=== PATIENT | male | born 1985 | race Caucasian/White ===

== ENCOUNTER 2024-06-27 17:17 | Emergency (ER) | payer OTHER, SELFPAY ==
--- NOTE | ~2024-06-27 | XR_ITS ---
XR hand LT min 3V Ordering provider: John Rendon APRN History: . dog bite/crush . Comparison: None. FINDINGS: BONES: No acute fractures seen. JOINT SPACES: Well maintained. SOFT TISSUES: Air is seen in the area of the thenar eminence. IMPRESSION: No acute osseous abnormality left hand. Air in the soft tissues of the thenar eminence. Reviewed, dictated and finalized at location A.
--- NOTE | ~2024-06-27 | XR_ITS ---
XR hand RT min 3V Ordering provider: John Rendon APRN History: . dog bite/crush . Comparison: None. FINDINGS: BONES: No acute fracture or dislocation. JOINT SPACES: Normal. SOFT TISSUES: Normal. IMPRESSION: No acute osseous abnormality right hand. Reviewed, dictated and finalized at location A.
--- OUTSIDE RECORDS SUMMARY | 2024-06-27 17:20 | XMS_ITS | Encounter Summary ---
Author Organization [facility] Address [address] [place] [address] Care Team Providers Care Credit And Collections Representative Name Role Phone Gema Daley NP Primary Care Provider Otto Bonner MD Primary Care Provider U Emily Alvarez APRN Primary Care Provider +1- [phone] Otto Britt MD Primary Care Provider U lakeishaailrosemary Encounter Details Date Type Department Care Team (Late st Contact Info) Description 06/28/2013 Abstract [facility] Conversion , Generic Conversion, Social History Tobacco Use Types Packs/Day Years Used Date Smoking Tobacco: Never Assessed Sex and Gender Information Value Date Recorded Sex Assigned at Not on file Legal Sex Male 11:12 PM CDT Gender Identity Not on file Sexual Orientation Not on file documented as of this encounter Plan of Treatment Not on file documented as of this encounter Visit Diagnoses Not on filedocumented in this encounter Additional Health Concerns Infection Onset Date Last Indicated Resolved Time COVID-19 Rule Out 07/15/2022 07/15/2022 07/15/2022 2:03 PM CDT documented as of this encounter Care Teams Credit And Collections Representative Relationship Specialty Start Date End Date Gema Daley NP PCP - General NURSE PRACTITIONER 04/06/18 04/22/20 Otto Britt MD PCP - General INTERNAL MEDICINE 04/23/20 04/26/22 Emily Carey APRN [id number] [facility] [address] [place] [address] PCP - General NURSE PRACTITIONER 06/03/22 Otto Britt MD PCP - General INTERNAL MEDICINE 04/27/22 06/02/22 documented as of this encounter
--- OUTSIDE RECORDS SUMMARY | 2024-06-27 17:20 | XMS_ITS | Clinical Summary ---
Author Organization [facility] Address [address] [place] [address] Care Team Providers Care Editor School Photograph Name Role Phone Emily Carey APRN Primary Care Provider [phone]- [phone] Allergies Active Allergy Reactions Criticality Noted Date Comments Amoxicillin-Pot Clavulanate Diarrhea,Nausea and Vomiting,Unknown 06/21/2013 Pt states he has not had vomiting with this medication Medications multi vitamin/minerals (THERA-M ENHANCED) tablet Take 1 tablet by mouth daily. 04/13/2016 Active fish oil 1000 MG Cap capsule Take 1 capsule (1,000 mg total) by mouth 2 (two) times daily. Active SUMAtriptan 100 MG tabletIndication s:Chronic migraine without aura without status migrainosus, not intractable Take 1 tablet at onset of symptoms, may take 1 tablet 2 hours later. Max of 2 tablets in 24-hour period. 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 Plantar wart of right foot 04/07/2018 Gastroesophageal reflux dise ase, esophagitis presence not specified 04/06/2018 Atypical chest pain 04/06/2018 Breast lump 03/01/2017 Muscle spasm 09/18/2016 Body aches 05/03/2016 Piriformis syndrome 04/13/2016 Sacral pain 04/13/2016 Lumbar pain 04/13/2016 Nonspecific abnormal finding in stool contents 0 03/25/2016 Bloating 01/07/2016 Belching 01/07/2016 Anxiety 01/07/2016 Pain in joint 03/26/2015 Immunizations Immunization Administration Dates Next Due Dtap (Generic) 07/30/1991, 8,02/17/1987,1986,1986 Fluzone 6 Months+ Quad (0.5 mL Prefilled Syringe) 12/20/2018 HPV GARDASIL 9-VALENT 07/19/2021,03/21/2021,11/0 09/2020 Hepatitis B 07/02/1996,01/30/1996,12/29/1995 Influenza (Generic) 12/08/2015,12/02/2014 Influenza Adult (Generic) 12/19/2022,08/2021,01/04/2021,2019,12/08/2017,12/05/2016,12/08/2015,1 ,12/03/2013 MMR (Generic) 07/30/1991,10/27/1987 Opv 07/30/1991, 8,02/17/1987,1986,1986 PFIZER COVID-19 (ORIGINAL FORMULATION, PURPLE CAP) mRNA, LNP-S, PF, 30 MCG/0.3 ML DOSE 06/11/2020,05/20/2020 Td 08/08/2001 Tdap (Generic) 03/23/2011 Social History Tobacco Use Types Packs/Day Years Used Date Smoking Tobacco: Never Smokeless Tobacco: Never Tobacco Cessation:Counseling Given: No Alcohol Use Standard Drinks/Week Comments Yes 0 (1 standard drink = 0.6 oz pur e alcohol) AUDIT-C Answer Date Recorded Frequency of Alcohol Consumption 2-3 times a wee k 04/06/2018 Average Number of Drinks 3 or 4 019 Frequency of Binge Drinking Less than monthly PHQ-2 Answer Date Recorded Patient Health Questionnaire-2 Score 0 05/10/2022 Education Answer Date Recorded What is the highest level of school you have completed or the highest degree you have received? High school graduate 04/06/2018 Sex and Gender Information Value Date Recorded Sex Assigned at Not on file Legal Sex Male 11:12 PM CDT Gender Identity Not on file Sexual Orientation Not on file Last Filed Vital Signs Vital Sign Reading Time Taken Comments Blood Pressure 144/91 07/15/2022 1:26 PM CDT Pulse 86 07/15/2022 1:26 PM CDT Temperature 37.2 C (99 F) 07/15/2022 1:26 PM CDT Respiratory Rate 20 07/15/2022 1:26 PM CDT Oxygen Saturation 98% 07/15/2022 1:26 PM CDT Inhaled Oxygen Concentration - - Weight 81.3 kg (179 lb 3.2 oz) 07/15/2022 1:26 P M CDT Height 180.3 cm (5' 11 ) 07/15/2022 1:26 PM CDT Body Mass Index 24.99 07/15/2022 1:26 PM CDT Plan of Treatment Health Maintenance Due Date Last Done Comments Annual Physical 1989 Hepatitis C 2004 DTaP, Tdap and Td Vaccines (7 - Td or Tdap) 03/23/2021 03/23/2011, 08/08/2001, 07/30/1991, Additional history exists COVID-19 Vaccine ( season) 2023 06/11/2020, 05/20/2020 PHQ-2 (Physician [place]) 02/28/2024 Hepatitis B Vaccines Completed 07/02/1996, 01/30/1996, 12/29/1995 HPV Vaccines Completed 07/19/2021, 02/28, 01/04/2021 Meningococcal B Vaccine Aged Out No l onger eligible based on patient's age to complete this topic Meningococcal Vaccine Aged Out No pat tez eligible based on patient's age to complete this topic Pneumococcal Vaccine: Pediatrics (0 to 5 Years) and At-Risk Patients (6 to 49 Years) Aged Out No longer eligible based on patient's age to complete this topic RSV Immunizations Under 20 Months Aged Out No longer eligible based on patient's age to complete this topic Insurance [facility] Care Teams Editor School Photograph Relationship Specialty Start Date End Date Emily Carey APRN [id number] [address] PCP - General NURSE PRACTITIONER 06/03/22
--- OUTSIDE RECORDS SUMMARY | 2024-06-27 17:20 | XMS_ITS | Encounter Summary ---
Author Organization [facility] Address [address] [place] [address] Care Team Providers Care Display Artist Name Role Phone Gema Daley NP Primary Care Provider Otto Bonner MD Primary Care Provider U Emily Alvarez APRN Primary Care Provider [phone]- [phone] Otto Britt MD Primary Care Provider U lakeishaailrosemary Encounter Details Date Type Department Care Team (Late st Contact Info) Description 04/29/2002 Abstract [facility] Conversion , Generic Conversion, Social History [...] documented as of this encounter Care Teams Display Artist Relationship Specialty Start Date End Date Gema Daley NP PCP - General NURSE PRACTITIONER 04/06/18 04/22/20 Otto Britt MD PCP - General INTERNAL MEDICINE 04/23/20 04/26/22 Emily Carey APRN [id number] [facility] [address] [place] [address] PCP - General NURSE PRACTITIONER 06/03/22 Otto Britt MD PCP - General INTERNAL MEDICINE 04/27/22 06/02/22 documented as of this encounter
--- OUTSIDE RECORDS SUMMARY | 2024-06-27 17:20 | XMS_ITS | Encounter Summary ---
Author Organization [facility] Address [facility] [place] [address] Care Team Providers Care Online Merchandiser Name Role Phone Gema Daley NP Primary Care Provider Otto Bonner MD Primary Care Provider U Emily Alvarez APRN Primary Care Provider +1- [phone] Otto Britt MD Primary Care Provider U stephanie Encounter Details Date Type Department Care Team (Late st Contact Info) Description 07/16/2013 Abstract [facility] Conversion , Generic Conversion, Social History Tobacco Use Types Packs/Day Years Used Date Smoking Tobacco: Never Sex and Gender Information Value Date Recorded [...] documented as of this encounter Care Teams Online Merchandiser Relationship Specialty Start Date End Date Gema Daley NP PCP - General NURSE PRACTITIONER 04/06/18 04/22/20 Otto Britt MD PCP - General INTERNAL MEDICINE 04/23/20 04/26/22 Emily Carey APRN [id number] [address] PCP - General NURSE PRACTITIONER 06/03/22 Otto Britt MD PCP - General INTERNAL MEDICINE 04/27/22 06/02/22 documented as of this encounter
--- NOTE | 2024-06-27 17:30 | ED.WOUNDLAC ---
HPI - Wound/Laceration General Chief Complaint: Wound/Laceration Stated Complaint: Bilateral Hand Pain Dog Bite Time Seen by Provider: 06/27/24 17:35 Source: patient Mode of arrival: ambulatory Limitations: no limitations History of Present Illness HPI narrative: This is a 38-year-old male patient who presents to the emergency department complaining of dog bite to bilateral hands. He was at work and his boss is dog was trapped in a fence when he reached down to try to free the dogs foot the dog snapped and bit patient's hands crushing down on the left hand. He used his right hand to try to free has left hand causing a scratch across the right 5th digit. He states that he has pain to his left hand with bruising and swelling already developing. He primarily had pain around the 3rd and 4th MCP joint along with numerous scratches and a couple small lacerations. This happened about an hour prior to arrival. Patient reports he washed hands completely including pulling apart the cuts and running water in them. He states tetanus was 13 years ago the best he can recall. Related Data Home Medications ?Medication ?Instructions ?Recorded ?Confirmed ?Last Taken ?Type sumatriptan succinate 50 mg tablet 50 mg PO ONCE 06/27/24 06/27/24 Unknown History (Imitrex) Allergies Allergy/AdvReac Type Severity Reaction Status Date / Time amoxicillin (From Augmentin) AdvReac Mild Nausea and Verified 06/27/24 17:56 Vomiting clavulanic acid (From AdvReac Mild Nausea and Verified 06/27/24 17:56 Augmentin) Vomiting Review of Systems Review of Systems: All systems reviewed & are unremarkable except as noted in HPI and below Exam Narrative: GENERAL: Well-appearing, well-nourished, and in no acute distress. HEAD: Normocephalic, atraumatic. ENT:? Mucous membranes moist. CHEST: Clear to auscultation.? No respiratory distress. HEART: Regular rate and rhythm. ? Normal peripheral pulses. ABDOMEN: Soft, nontender, nondistended. EXTREMITIES: Normal range of motion. cap refill present in all digits. Full range of motion in all digits. Abrasion to the right 5th digit along the PIP joint without wound edge separation amenable to repair. Left hand with bruising and swelling over the mid hand with a laceration between the thumb and the 2nd digit as well as a small the sleep laceration the dorsum of the hand overlying the 3rd metacarpal. Multiple other scattered abrasions noted across the hand including 1 on the palm. SKIN: Warm dry normal color NEURO: Alert and oriented x3. PSYCH: Normal mood and affect Course Course Level of Care: Express Care Visit Vital Signs Vital signs: Vital Signs Temperature 36.1 C L 06/27/24 17:32 Pulse Rate 84 06/27/24 17:32 Respiratory Rate 18 06/27/24 17:32 Blood Pressure 146/102 H 06/27/24 17:32 Pulse Oximetry 99 06/27/24 17:32 Oxygen Delivery Room Air 06/27/24 17:32 Temperature 36.1 C L 06/27/24 17:32 Pulse Rate 94 06/27/24 18:34 Respiratory Rate 18 06/27/24 17:32 Blood Pressure 153/82 H 06/27/24 18:34 Pulse Oximetry 99 06/27/24 17:32 Oxygen Delivery Room Air 06/27/24 17:32 Procedures Laceration Laceration 1: Date: 06/27/24 Time: 18:00 Site: hand ( Left hand between the thumb and index finger on the dorsum) Side (If applicable): left Size (cm): 1 Description: linear Depth: simple, single layer Local Anesthetic: lidocaine 1% and with epi Amount of anesthesia used (mL): 6 Pre-repair: wound explored, irrigated and irrigated extensively ====== Skin Level ====== Skin layer closed with: nylon Size (cm): 4-0 Number of sutures: 2 Technique: simple, interrupted ====== Subcutaneous Layer ====== ====== Muscle Layer ====== ====== Tendon Layer ====== Laceration 2: Date: 06/27/24 Time: 18:05 Site: hand ( dorsum overlying the 3rd metacarpal) Side (If applicable): left Size (cm): 1 ( v-shaped) Description: other (V shaped) Depth: simple, single layer Local Anesthetic: lidocaine 1% and with epi Amount of anesthesia used (mL): 4 Pre-repair: wound explored, irrigated and irrigated extensively ====== Skin Level ====== Skin layer closed with: nylon Size (cm): 4-0 Number of sutures: 1 Technique: simple, interrupted (One stitch to the V point which pulled both side wound edges together but left room to drain if needed) ====== Subcutaneous Layer ====== ====== Muscle Layer ====== ====== Tendon Layer ====== MDM - Wound/Laceration MDM Narrative Medical decision making narrative: Patient to the [facility] with dog bite. Bilateral hand x-rays ordered no acute fracture noted per my independent interpretation as well as radiology read. Patient does have old fracture to the distal phalanx of the left 3rd finger but no injury currently at that location. Tdap updated. Only 2 lacerations were large enough to need wound edges pull together. 1 cm laceration between the thumb and the forefinger on the dorsum of the left hand placed 2 sutures but still tried to leave room for drainage if necessary. V-shaped laceration totaling 1 cm on the dorsum of the left hand overlying the 3rd metacarpal lung 1 suture placed at the point of the which pulled both edges into alignment but left room for drainage. Wounds were all very Thoroughly cleansed and irrigated. No retained foreign bodies. Patient instructed on wound care as well as approximately 14 days for suture removal. Antibiotics started. Patient reports adverse reaction of nausea and vomiting GI upset to Augmentin however I discussed the options of using Augmentin verses Keflex and metronidazole and patient chose to try the Augmentin along within a probiotic over the counter and Zofran prescription. We gave an IM injection of ketorolac here and prescription written for Motrin as well as [place] for severe pain. Patient instructed to take the 1st dose of antibiotic Zofran and probiotic tonight. We may sure to send the prescription to a pharmacy that would still be open after discussion with patient and significant other. return precautions discussed. Discharge Plan Discharge Clinical Impression: Dog bite of dorsum of hand Patient Disposition: Home Condition: Stable Instructions: Antibiotic Form, Animal Bite (ED) Additional Instructions: Have sutures removed in 10-14 days. Take antibiotic as prescribed to prevent infection. Take a probiotic and ondansetron at same time as antibiotic to decrease upset stomach symptoms. If you develop pus draining or signs of spreading infection then please be seen again. Do not soak hand in standing water or natural bodies of water including streams, ponds, lakes, ocean until wounds are closed, healed and sutures are out. Hand wounds are particularly susceptible to infections and if left untreated can cause major problems. If you are unable to bend or straighten fingers or they swell like a sausage you need to go to ER. Patient Language: Iranian Prescriptions: New ondansetron 4 mg tablet,disintegrating 4 mg PO Q6H PRN (Reason: nausea and vomiting) Qty: 20 0RF amoxicillin-pot clavulanate 875-125 mg tablet 1 tablet PO Q12H Qty: 14 0RF ibuprofen 600 mg tablet 600 mg PO Q6H Qty: 30 0RF hydrocodone-acetaminophen 5-325 mg tablet 1 tablet PO Q4H PRN (Reason: pain, severe) Qty: 17 0RF No Action sumatriptan succinate [Imitrex] 50 mg tablet 50 mg PO ONCE Follow-up/Referrals: PHYSICIAN,DIVIDING MACHINE OPERATOR [Primary Care Provider] - Stand Alone Forms: Work/School Release IP Time of Disposition: 18:27
[2024-06-27 17:32] VITALS: BP 146/102; PULSE 84; RESP 18; TEMP 36.1; O2SAT 99
[2024-06-27] MEDS: LIDO 1%/EPINEPHRINE 1:100,000 20 ML VIAL 10 ML INFILTRATE (17:50)
[2024-06-27] MEDS: KETOROLAC (*BKC) 60 MG/2 ML VIAL IM (17:51)
[2024-06-27] MEDS: TETANUS,DIPHTHERIA,AC PERTUSSIS ADULT (0.5 ML) BOOSTRIX IM (17:55)
[2024-06-27 18:34] VITALS: BP 153/82; PULSE 94
== END 2024-06-27 18:34 | disposition home or self-care (01) ==
PROVIDERS: Emergency Provider Nurse Practitioner
DX: S61.412A Laceration without foreign body of left hand, initial encounter (principal); S60.416A Abrasion of right little finger, initial encounter; W54.0XXA Bitten by dog, initial encounter; Z23 Encounter for immunization
CPT/HCPCS: 12001; 73130; 90471; 90715; 96372; 99213; G0463; J1885; J2004

== ENCOUNTER 2024-07-11 16:57 | Emergency (ER) | payer OTHER, SELFPAY ==
--- OUTSIDE RECORDS SUMMARY | 2024-07-11 16:59 | XMS_ITS | Encounter Summary ---
Author Organization [facility] Address [address] [place] [address] Care Team Providers Care Blindstitch Lapel Padder Name Role Phone Gema Daley NP Primary Care Provider Otto Bonner MD Primary Care Provider U Emily Alvarez APRN Primary Care Provider [phone]- [phone] Otto Britt MD Primary Care Provider U lakeishaailrosemary Encounter Details Date Type Department Care Team (Late st Contact Info) Description 06/28/2013 Abstract [facility] Conversion , Generic Conversion, Social [...] documented as of this encounter Care Teams Blindstitch Lapel Padder Relationship Specialty Start Date End Date Gema Daley NP PCP - General NURSE PRACTITIONER 04/06/18 04/22/20 Otto Britt MD PCP - General INTERNAL MEDICINE 04/23/20 04/26/22 Emily Carey APRN [id number] [facility] [address] [place] [address] PCP - General NURSE PRACTITIONER 06/03/22 Otto Britt MD PCP - General INTERNAL MEDICINE 04/27/22 06/02/22 documented as of this encounter
--- OUTSIDE RECORDS SUMMARY | 2024-07-11 16:59 | XMS_ITS | Encounter Summary ---
Author Organization [facility] Address [address] [place] [address] Care Team Providers Care Recreational Vehicle Repairer Name Role Phone Gema Daley NP Primary Care Provider Otto Bonner MD Primary Care Provider U Emily Alvarez APRN Primary Care Provider [phone]- [phone] Otto Britt MD Primary Care Provider U stephanie Encounter Details Date Type Department Care Team (Late st Contact Info) Description 07/16/2013 Abstract [facility] Conversion , Generic Conversion, Social [...] documented as of this encounter Care Teams Recreational Vehicle Repairer Relationship Specialty Start Date End Date Gema Daley NP PCP - General NURSE PRACTITIONER 04/06/18 04/22/20 Otto Britt MD PCP - General INTERNAL MEDICINE 04/23/20 04/26/22 Emily Carey APRN [id number] [address] PCP - General NURSE PRACTITIONER 06/03/22 Otto Britt MD PCP - General INTERNAL MEDICINE 04/27/22 06/02/22 documented as of this encounter
--- OUTSIDE RECORDS SUMMARY | 2024-07-11 16:59 | XMS_ITS | Encounter Summary ---
Author Organization [facility] Address [address] [place] [address] Care Team Providers Care Workforce Specialist Name Role Phone Gema Daley NP Primary Care Provider Otto Bonner MD Primary Care Provider U Emily Alvarez APRN Primary Care Provider +1- [phone] Otto Britt MD Primary Care Provider U lakeishaailrosemary Encounter Details Date Type Department Care Team (Late st Contact Info) Description 04/29/2002 Abstract [facility] Conversion , Generic Conversion, Social [...] documented as of this encounter Care Teams Workforce Specialist Relationship Specialty Start Date End Date Gema Daley NP PCP - General NURSE PRACTITIONER 04/06/18 04/22/20 Otto Britt MD PCP - General INTERNAL MEDICINE 04/23/20 04/26/22 Emily Carey APRN [id number] [facility] [address] [place] [address] PCP - General NURSE PRACTITIONER 06/03/22 Otto Britt MD PCP - General INTERNAL MEDICINE 04/27/22 06/02/22 documented as of this encounter
--- OUTSIDE RECORDS SUMMARY | 2024-07-11 16:59 | XMS_ITS | Clinical Summary ---
Author Organization [facility] Address [address] [place] [address] Care Team Providers Care Artificial Flowers Dyer Name Role Phone Emily Carey APRN Primary Care Provider +1- [phone] Allergies Active Allergy Reactions Criticality Noted Date [...] ( season) 2023 06/11/2020, 05/20/2020 PHQ-2 (Physician [place]) 02/28/2024 Hepatitis B Vaccines Completed 07/02/1996, 01/30/1996, [...] patient's age to complete this topic Insurance [employer] Care Teams Artificial Flowers Dyer Relationship Specialty Start Date End Date Emily Carey APRN [id number] [address] PCP - General NURSE PRACTITIONER 06/03/22
--- NOTE | 2024-07-11 17:06 | ED_ITS ---
HPI - Wound/Laceration General Chief Complaint: Upper Respiratory Infection Stated Complaint: stitch removal/sinus issues Time Seen by Provider: 07/11/24 17:10 Source: patient Mode of arrival: ambulatory Limitations: no limitations History of Present Illness HPI narrative: Rey is a 38-year-old male patient presenting to the clinic today with complaints of sinus issues and a cough. He reports symptoms have been going on for 5 days. Recently just finished a antibiotic of Augmentin for a dog bite. States that he felt better few days after that however this sinus pressure and congestion came back. Denies any shortness of breath or chest pain. He is also here for suture removal. Related Data Home Medications Medication Instructions Recorded Confirmed Last Taken Type sumatriptan succinate 50 mg tablet 50 mg PO ONCE 06/27/24 06/27/24 Unknown History (Imitrex) Allergies Allergy/AdvReac Type Severity Reaction Status Date / Time amoxicillin (From Augmentin) AdvReac Mild Nausea and Verified 07/11/24 17:15 Vomiting clavulanic acid (From AdvReac Mild Nausea and Verified 07/11/24 17:15 Augmentin) Vomiting Review of Systems Review of Systems: Pertinent positives per HPI. Patient denies any fever, chills, rash, headache, visual changes, dizziness, shortness of breath, chest pain, palpitations, nausea, vomiting, diarrhea, constipation, abdominal pain, or any urinary issues. PMFSH Comments At the time of my signature, I reviewed and agree with the nursing past medical, surgical, social, and family history. There is no relevant family history pertinent to the patient complaint. Exam Narrative: General: Well-developed, well nourished, in no apparent distress Head: Normocephalic, atraumatic Eyes: Pupils equally round and reactive to light bilaterally, EOM intact, sclera and conjunctive clear, no discharge, lids normal Ears: TMs intact and congested, ear canals clear, no drainage, grossly hearing normal. Nose: Nares patent, yellow nasal discharge, moderate inflammation, no sinus tenderness. Mouth: Oral pharynx without lesions or masses, good dentition, MMM. Postnasal drip, canker sore to the left posterior pharynx Neck: Supple, trachea midline, no enlargement of anterior or posterior cervical nodes, no thyroid masses or goiter palpable. Cardio: Regular rate and rhythm, s1 and s2 normal, no murmur appreciated. Resp: Clear to auscultation bilaterally, no rhonchi, rales, wheezing or rubs Course Course Emergency Course: Portions of this record may have been created with voice recognition software. Level of Care: Express Care Visit Vital Signs Vital signs: Vital signs reviewed MDM - Wound/Laceration MDM Narrative Medical decision making narrative: At the time of visit patient is resting comfortably on the exam table. Patient appears to be nontoxic. Plan: Patient has canker sore to the left posterior pharynx, encounter for suture removal, and sinusitis/bronchitis. Prescription for Z-Loki per patient's request as well as prednisone was sent to the pharmacy. Will also send in triamcinolone dental paste for the canker sore. Supportive measures were discussed with the patient and they voiced understanding discharge instructions and agrees to treatment plan. Return precautions reviewed Differential Diagnosis Differential diagnosis: Likely other (Suture removal, canker sore, sinusitis, bronchitis, URI, COVID, influenza) Discharge Plan Discharge Clinical Impression: Sinobronchitis, Canker sore, Encounter for removal of sutures Patient Disposition: Home Condition: Stable Instructions: Antibiotic Form, Sinusitis (ED), Acute Bronchitis (ED) Additional Instructions: 3 sutures were removed in the clinic today Keep wounds clean and dry Take prescription medications only as prescribed-prednisone, triamcinolone paste and azithromycin Increase fluids and stay well hydrated Tylenol/motrin for pain/fever Flonase and OTC antihistamines as directed Vicks vapor rub to open sinuses Sinus rinses for congestion Cepacol spray, cough drops, throat lozenges, warm tea with honey/lemon, gargle salt water to soothe throat BRAT diet for diarrhea Clear liquids x 24 hours then advance as tolerated for nausea/vomiting Go to the ED if you develop a worsening in your condition- high fever not controlled by Tylenol or Motrin, dehydration, weakness, lethargy, shortness of breath, or chest pain. Follow up with your PCP in 3-5 days if symptoms persist. Patient Language: Japanese Prescriptions: New prednisone 20 mg tablet 40 mg PO DAILY 5 Days Qty: 10 0RF azithromycin 250 mg tablet See Rx Instructions .ROUTE .COMPLEX Qty: 6 0RF Rx Instructions: For 250 mg dose pack: take 500 mg today (day 1), then 250 mg for 4 days (days 2-5) triamcinolone acetonide 0.1 % paste 1 applic dental BID 7 Days Qty: 5 0RF Rx Instructions: use after food and/or drink and/or oral hygiene No Action sumatriptan succinate [Imitrex] 50 mg tablet 50 mg PO ONCE ondansetron 4 mg tablet,disintegrating 4 mg PO Q6H PRN (Reason: nausea and vomiting) Qty: 20 0RF ibuprofen 600 mg tablet 600 mg PO Q6H Qty: 30 0RF hydrocodone-acetaminophen 5-325 mg tablet 1 tablet PO Q4H PRN (Reason: pain, severe) Qty: 17 0RF Follow-up/Referrals: PHYSICIAN,REVENUE INTEGRITY ANALYST [Primary Care Provider] - Time of Disposition: 17:15 Quality NIHSS Nursing Documentation ED NIHSS nursing documentation: reviewed/agree
[2024-07-11 17:10] VITALS: BP 156/87; PULSE 86; RESP 18; TEMP 36.3; O2SAT 99
== END 2024-07-11 17:24 | disposition home or self-care (01) ==
PROVIDERS: Emergency Provider Nurse Practitioner Family; Referring Provider Emergency Medicine
DX: J32.9 Chronic sinusitis, unspecified (principal); J40 Bronchitis, not specified as acute or chronic; K12.0 Recurrent oral aphthae; Z48.02 Encounter for removal of sutures
CPT/HCPCS: 99213; G0463